=== PATIENT | male | born 1995 | race Hispanic/Latino ===

== ENCOUNTER 2020-06-26 14:09 | Emergency (ER) | payer SELFPAY ==
[2020-06-26] MEDS ORDERED: ceFAZolin/NS 1 GM/50 ML 1 GM/50 ML BAG IV ONE (14:39)
[2020-06-26] MEDS ORDERED: oxyCODONE /ACETAMINOPHEN 5-325MG TAB PO PRN (14:39)
[2020-06-26] MEDS ORDERED: DIPHtheria,PERTUSSIS(ACELL),TETANUS VACCINE/PF 0.5 ML VIAL IM ONE (14:39)
--- NOTE | 2020-06-26 14:45 | Emergency Department Report ---
ED Upper Extremity Inj HPI - General Chief Complaint: Extremity Injury, Upper Stated Complaint: LFT INDEX LAC FINGER/PAIN Time Seen by Provider: 06/26/20 14:35 Source: patient Mode of arrival: Ambulatory Limitations: No Limitations - History of Present Illness Initial Comments: Patient is a 24-year-old male presents emergency room complaints of a left index finger laceration that occurred at 1:30 PM today. He states that he was using a table saw to cut wood and accidentally cut part of his finger off. He states initially there was bleeding but he wrapped it in a towel and improved. He is unsure of her last tetanus immunization. He states that he feels tingling in the finger but denies any numbness or weakness. He is still able to move the f bairon. No past medical history. No allergies to medications. - Related Data Previous Rx's Medication Instructions Recorded Last Taken Type HYDROcodone/APAP 5-325 [[place] 1 each PO Q6HR PRN #12 tablet 06/26/20 Unknown Rx 5/325] Ibuprofen [Motrin 600 MG tab] 600 mg PO Q8H PRN #20 tablet 06/26/20 Unknown Rx cephALEXin [Keflex] 500 mg PO QID 7 Days #28 cap 06/26/20 Unknown Rx Allergies Allergy/AdvReac Type Severity Reaction Status Date / Time No Known Allergies Allergy Verified 06/26/20 14:41 ED Review of Systems ROS: Stated complaint: LFT INDEX LAC FINGER/PAIN Other details as noted in HPI Comment: All other systems reviewed and negative ED Past Medical Hx - Past Medical History Previous Medical History?: No - Surgical History Past Surgical History?: No - Social History Smoking Status: Never Smoker Substance Use Type: Alcohol - Medications Home Medications: Home Medications Medication Instructions Recorded Confirmed Last Taken Type HYDROcodone/APAP 5-325 [[place] 1 each PO Q6HR PRN #12 tablet 06/26/20 Unknown Rx 5/325] Ibuprofen [Motrin 600 MG tab] 600 mg PO Q8H PRN #20 tablet 06/26/20 Unknown Rx cephALEXin [Keflex] 500 mg PO QID 7 Days #28 cap 06/26/20 Unknown Rx ED Physical Exam - General Limitations: No Limitations General appearance: alert, in no apparent distress - Head Head exam: Present: atraumatic, normocephalic - Eye Eye exam: Present: normal appearance - ENT ENT exam: Present: mucous membranes moist - Respiratory Respiratory exam: Absent: respiratory distress, accessory muscle use - Neurological Exam Neurological exam: Present: alert, oriented X3 - Psychiatric Psychiatric exam: Present: normal affect, normal mood - Skin Skin exam: Present: warm, dry, other (there is an avulsion laceration through the distal end of the left index finger to the middle portion of the left index figernail, does not involve the nailbed, he has FROM of the left wrist, hand, and digit, small amount of bleeding, neurovascularly intact) ED Course Vital Signs 06/26/20 06/26/20 06/26/20 14:36 15:18 16:18 Temperature 97.9 F Pulse Rate 75 Respiratory 18 18 18 Rate Blood Pressure 129/87 Blood Pressure [Right] O2 Sat by Pulse 100 Oximetry 06/26/20 16:43 Temperature Pulse Rate 68 Respiratory 18 Rate Blood Pressure Blood Pressure 118/70 [Right] O2 Sat by Pulse 99 Oximetry ED Medical Decision Making - Radiology Data Radiology results: report reviewed Ordering Physician: LISA LOBO Date of Service: 06/26/20 Procedure(s): XR finger(s) 2+V LT Accession Number(s): [id number] cc: LISA LOBO Fluoro Time In Minutes: LEFT INDEX FINGER 3 VIEWS INDICATION: avulsion due to saw left index. COMPARISON: No relevant prior imaging study available. FINDINGS: There is avulsion injury at the distal tip of the left index finger with soft tissue loss and partial avulsion of the tuft of the distal phalanx. There is mildly comminuted fracture within the residual tuft and distal shaft. No radiodense foreign bodies. IMPRESSION: 1. Avulsion injury distal tip left index finger. Signer Name: Thanh Arellano MD Signed: 06/26/2020 3:05 PM Workstation Name: [id number] Transcribed By: MILEY Dictated By: Thanh Arellano MD Electronically Authenticated By: Thanh Arellano MD Signed Date/Time: 06/26/20 1505 DD/ 1504 TD/TT: - Medical Decision Making Patient is a 24-year-old male presents emergency room complaints of a left index finger laceration that occurred at 1:30 PM today. He states that he was using a table saw to cut wood and accidentally cut part of his finger off. He states initially there was bleeding but he wrapped it in a towel and improved. He is unsure of her last tetanus immunization. He states that he feels tingling in the finger but denies any numbness or weakness. He is still able to move the finger. No past medical history. No allergies to medications. vitals are normal. on exam: there is an avulsion laceration through the distal end of the left index finger to the middle portion of the left index figernail, does not involve the nailbed, he has FROM of the left wrist, hand, and digit, small amount of bleeding, neurovascularly intact. Examination consistent with avulsion injury. X-ray left finger 1. Avulsion injury distal tip left index finger. Patient given Tdap, IV cefazolin, pain medication and symptoms improved. Wound was thoroughly irrigated and soaked in Betadine. Patient placed in dressing by global manager and splint. Given prescription for Keflex, [place], ibuprofen. Advised patient please take medication as prescribed. Do not drive or operate machinery while taking severe pain medication. Please follow- up with orthopedic doctor. It is very important that you follow-up. Please do not remove splint. Return to emergency room for any new or worsening symptoms. Critical care attestation.: If time is entered above; I have spent that time in minutes in the direct care of this critically ill patient, excluding procedure time. ED Disposition Clinical Impression: Avulsion fracture of distal phalanx of finger Qualifiers: Encounter type: initial encounter Fracture type: open Qualified Code(s): S62.639B - Displaced fracture of distal phalanx of unspecified finger, initial encounter for open fracture Avulsion of finger tip Qualifiers: Encounter type: initial encounter Qualified Code(s): S61.209A - Unspecified open wound of unspecified finger without damage to nail, initial encounter Disposition: DC-01 TO HOME OR SELFCARE Is pt being admited?: No Does the pt Need Aspirin: No Condition: Stable Instructions: Deep Skin Avulsion, Avulsion Fracture of the Hand Additional Instructions: Please take medication as prescribed. Do not drive or operate machinery while taking severe pain medication. Please follow-up with orthopedic doctor. It is very important that you follow-up. Please do not remove splint. Return to e mergency room for any new or worsening symptoms. Prescriptions: cephALEXin [Keflex] 500 mg PO QID 7 Days #28 cap Ibuprofen [Motrin 600 MG tab] 600 mg PO Q8H PRN #20 tablet PRN Reason: Pain, Moderate (4-6) HYDROcodone/APAP 5-325 [[place] 5/325] 1 each PO Q6HR PRN #12 tablet PRN Reason: Pain , Severe (7-10) Referrals: PRIMARY CAREMD [Primary Care Provider] - 2-3 Days VIRIDIANA ORTEGA MD [Staff Physician] - 2-[address] [facility] [Provider Group] - 2-3 Days Time of Disposition: 15:28 Print Language: BOLIVIAN
--- NOTE | 2020-06-26 15:09 | XRay Report ---
LEFT INDEX FINGER 3 VIEWS INDICATION: avulsion due to saw left index. COMPARISON: No relevant prior imaging study available. FINDINGS: There is avulsion injury at the distal tip of the left index finger with soft tissue loss and partial avulsion of the tuft of the distal phalanx. There is mildly comminuted fracture within the residual tuft and distal shaft. No radiodense foreign bodies. IMPRESSION: 1. Avulsion injury distal tip left index finger. Signer Name: Thanh Arellano MD Signed: 06/26/2020 3:05 PM Workstation Name: [id number]
[2020-06-26 16:43] VITALS: BP 118/70
== END 2020-06-26 16:41 | disposition home or self-care (01) ==
LOC: ED 14:09
DX: S62.631A Displaced fracture of distal phalanx of left index finger, initial encounter for closed fracture (principal); S61.209A Unspecified open wound of unspecified finger without damage to nail, initial encounter; Z79.899 Other long term (current) drug therapy; W45.8XXA Other foreign body or object entering through skin, initial encounter; Y93.89 Activity, other specified; Y92.89 Other specified places as the place of occurrence of the external cause; Y99.8 Other external cause status
CPT/HCPCS: 11730; 73140; 90471; 90715; 96365; 99283; J0690